=== PATIENT | male | born 1985 | race Caucasian/White ===

== ENCOUNTER → 2020-05-30 | Outpatient (CLI) | payer OTHER, MEDICAID ==
--- NOTE | 2020-06-11 04:10 | ECWPNPC ---
PATIENT NAME: ANTHONY ORANTES : 1985 GENDER: MALE VISIT DATE: 05/30/2020 DISCHARGE DATE: 05/30/20 1722 VISIT LOCKED DATE TIME: PHYSICIAN: JOE COLLINS MD RESOURCE: JOE COLLINS MD REASON FOR APPOINTMENT 1. NECK/BACK/SHOULDER-PT BOOKED WITH DR COLLINS DUE TO PRIMARY LANGUAGE BEING TONGAN. HISTORY OF PRESENT ILLNESS GENERAL: 34-YEAR-OLD MALE PATIENT WITH A HISTORY OF CHRONIC BACK PAIN. THE PATIENT HAS BEEN SUFFERING FROM THIS SINCE ABOUT 2 YEARS AGO. THE PATIENT EXPRESSED THAT THE PROBLEM HAS COME ON SLOWLY, AFFECTING DIFFERENT PARTS OF HIS BODY INCLUDING HIS UPPER BACK, LOWER BACK AND THE RIGHT SHOULDER. THE MAIN AREA OF HIS CONCERN AT THE MOMENT IS HIS LOWER BACK. THE PATIENT DESCRIBES THE PAIN STABBING, SHARP, SERVE WITH A PAIN SCORE RANGING FROM 8-10/10 DEPENDING ON PHYSICAL ACTIVITY. THIS IS AFFECTING HIS ACTIVITIES OF DAILY LIVING SUCH WORKING, DOING GROCERIES, CLEANING HIS HOUSE, DRIVING. HE IS HAVING PROBLEMS SLEEPING. THE PATIENT IS LOOKING FOR ALTERNATIVES. PRESENTLY, HE IS USING SEVERAL MEDICATIONS WHICH INCLUDE PERCOCET, IBUPROFEN, TIZANIDINE PRESCRIBED BY HIS PRIMARY CARE PHYSICIAN. THE PATIENT STATES THAT WHEN HE HAS PAIN, HE FEELS LIKE HIS BLOOD PRESSURE IS INCREASED. THE COLD WEATHER AFFECTS HIS JOINTS AND CAUSES PAIN. PATIENT DENIES UNEXPLAINABLE WEIGHT LOSS, FEVER, CHILLS, NEW CHANGES ON HIS URINARY OR BOWEL CONTROL. FALL RISK SCREENING: SCREENING :NO FALLS REPORTED IN THE LAST YEAR PAIN SCREENING: PATIENT HAS A COMPLAINT OF ACUTE OR CHRONIC PAIN :YES INTENSITY OF PAIN (SCALE OF 1 TO 10):10 WHAT DOES YOUR PAIN FEEL LIKE:STABBING, SHARP PAIN IN SHOULDER, "SCREW AND HAMMER" BACK FEELS LIKE SQUEZING OR PULLING MUSCLES DURATION:CONSTANT PAIN IS INCREASED BY:ACTIVITIES, PROLONGED STANDING PLAN/GOALS/TREATMENT/INTERVENTION/FOLLOW UP:SEE PLAN NURSING NOTE: -. CURRENT MEDICATIONS TAKING TIZANIDINE HCL 4 MG TABLET 1 TABLET NEEDED ORALLY THREE TIMES A DAY TAKING IBUPROFEN 800 MG TABLET 1 TABLET WITH FOOD OR MILK NEEDED ORALLY THREE TIMES A DAY TAKING PERCOCET 5-325 MG TABLET 1 TABLET NEEDED ORALLY EVERY 8 HRS MEDICATION LIST REVIEWED AND RECONCILED WITH THE PATIENT PAST MEDICAL HISTORY HYPERTENSION BACK PAIN, CHRONIC UMBILICAL HERNIA EPIDIDYMITIS CHEST WALL PAIN ALLERGIES N.K.D.A. SURGICAL HISTORY HAND SURGERY, RIGHT FAMILY HISTORY FATHER: ALIVE 59 YRS MOTHER: ALIVE 62 YRS, DIAGNOSED WITH DIABETES, UNSPECIFIED HEART DISEASE SOCIAL HISTORY GENERAL: TOBACCO USE ARE YOU A:CURRENT SMOKER VAPORNO E-CIGARETTENO ALCOHOL SCREENING DID YOU HAVE A DRINK CONTAINING ALCOHOL IN THE PAST YEAR?NO POINTS0 INTERPRETATIONNEGATIVE RECREATIONAL DRUG USE DRUG USE?NO CONFUCIANIST [id number] OTHER NO ADVENTIST BELIEFS THAT WOULD IMPACT HEALTH CARE. LANGUAGE LANGUAGES SPOKEN:BOTH GERMAN AND TONGAN LIMITED GERMAN LEARNING BARRIERS / SPECIAL NEEDS SHOWROOM MANAGER NEEDED?YES DOMESTIC VIOLENCE DO YOU FEEL SAFE IN YOUR ENVIRONMENT?YES OCCUPATION: UNEMPLOYED. DIET: NO ADDED SALT. MARITAL STATUS: . ADVANCE DIRECTIVE ADVANCE DIRECTIVE DISCUSSED WITH PATIENT:YES PATIENT DENIES, ANY ADVANCED DIRECTIVES, OR ASSISTANCE AT THIS TIME. HOSPITALIZATION/MAJOR DIAGNOSTIC PROCEDURE SURGERY RELATED REVIEW OF SYSTEMS CONSTITUTIONAL: ANY RECENT FEVER NO . CHILLS NO . WEIGHT CHANGE OF UNKNOWN REASONS NO . MUSCULOSKELETAL: ANY UNUSUAL JOINT PAIN OR SWELLING NOT MENTIONED NO . SYSTEMIC LUPUS NO . ANY NEUROMUSCULAR DISORDER NOT MENTIONED NO . LYME DISEASE NO . GASTROENTEROLOGY: ANY NEW CHANGE IN BOWEL CONTROL? NO . HISTORY OF LIVER DISORDER NOT MENTIONED NO . HISTORY OF UNUSUAL ABDOMINAL PAIN OR CRAMPING NOT MENTIONED NO . NO CONSTIPATION. GENITOURINARY: ANY NEW CHANGE IN BLADDER CONTROL? NO . ANY RENAL/KIDNEY CONDITON NOT MENTIONED NO . NEUROLOGY: HISTORY OF TBI NOT MENTIONED NO . OTHER NEW NUMBNESS OR PAIN PATTERNS NOT MENTIONED NO . NEW ONSET DIZZINESS OR NEUROLOGICAL CHANGES NOT MENTIONED NO . HISTORY OF SEVERE HEADACHES NOT MENTIONED NO . HISTORY OF STROKE OR NEUROLOGICAL DISORDER NOT MENTIONED NO . CARDIOLOGY: HEART SURGERY NO . CONGESTIVE HEART FAILURE/FLUID OVERLOAD NOT MENTIONED NO . HISTORY OF CHEST PAIN,IRREGULAR HEART BEAT NOT MENTIONED NO . RESPIRATORY: SHORTNESS OF BREATH ON EXERTION, WHEEZES, UNUSUAL COUGH NOT MENTIONED NO . ENDOCRINOLOGY: ADRENAL GLAND OR THYROID DISORDERS NOT MENTIONED NO . UNUSUAL URINATION, DIZZINESS OR LETHARGY NOT MENTIONED NO . VITAL SIGNS WT 260.8 LBS, HT 70 IN, BMI 37.42 INDEX, BP 155/89 MM HG, HR 96 /MIN, RR 18 /MIN, TEMP 97.1 F, OXYGEN SAT % 975, SAFE IN ENV? (Y/N) YES, NA INITIALS MA 14:03, REVIEWED BY: NAE VILLA RN BSN. EXAMINATION GENERAL EXAMINATION: THE PATIENT IS ALERT, ORIENTED TIMES THREE AND COOPERATIVE. HEART SHOWS REGULAR RHYTHM, NO MURMURS AND NO GALLOPS. LUNGS ARE CLEAR TO AUSCULTATION. THERE IS SEVERE TENDERNESS IN THE PARASPINAL MUSCLE GROUP IN THE LOWER BACK WITH PRESENCE OF TRIGGER POINTS AND BANDS OF TISSUE. THERE IS ALSO INCREASING PAIN IN THE FACET JOINTS ON THE RIGHT AND LEFT SIDE. THERE IS SEVERE PAIN IN THE THORACIC AREA ON THE RIGHT AND LEFT WITH BANDS OF TISSUE AND PRESENCE OF TRIGGER POINTS. THE RIGHT LEG IS WEAKER THAN THE LEFT LEG ON FLEXION. 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 I CHECKED SOME NOTES FROM THE REFERRING PHYSICIAN, DR. ABIGAIL FERNANDEZ. ASSESSMENTS LUMBAGO - M54.5 (PRIMARY) CERVICALGIA - M54.2 RIGHT SHOULDER PAIN - M25.511 MYALGIA - M79.10 TREATMENT LUMBAGO NOTES: 05/30/20 1600 PATIENT GIVEN PRE PROCEDURE INSTRUCTIONS ON TRIGGER POINT INJECTIONS, PATIENT VERBALIZES UNERSTANDING. Rishabh VILLA RN BSN. CLINICAL NOTES: I DISCUSSED ALTERNATIVES WITH MR. ORANTES. THE MAIN ISSUE SEEMS TO BE AT THE THORACOLUMBAR AREA. I WOULD LIKE TO DO TRIGGER POINTS AT BILATERAL THORACIC AREA. I WILL FOLLOW UP WITH THE PATIENT AFTER THE PROCEDURE. FOR NOW, THE PATIENT WILL CONTINUE WITH THE MEDICATION FROM THE PRIMARY CARE. THE PATIENT IS INTERESTED IN MEDICAL MARIJUANA. I WILL SEND A REFERRAL TO PALLIATIVE CARE. THE PATIENT UNDERSTANDS AND AGREES WITH THE PLAN. I, YAZMIN LAN, DOCUMENTED THE ABOVE INFORMATION ACTING A SCRIBE FOR DR. COLLINS. I HAVE REVIEWED THE ABOVE DOCUMENT, WRITTEN BY YAZMIN LAN, IMPLEMENT MECHANIC, AND I VERIFY THAT IT IS ACCURATE. DEAR DR. FERNANDEZ: THANK YOU FOR YOUR KIND REFERRAL OF ANTHONY ORANTES. IF YOU WANT TO DISCUSS HIS CASE WITH ME PLEASE CALL ME AT THE PAIN CENTER AT [phone]. SINCERELY, JOE COLLINS MD PAIN MEDICINE. OTHERS NOTES: 05/30/20 1420 NURSE USED HOSPITAL TRANSLATION SERVICES "[employer]" FOR ASSISTANCE WITH TONGAN TRANSLATION. Rishabh VILLA RN BSN . CLINICAL NOTES: IPAD AVAILABLE FROM NURSERING SUPERVISORS OFFICE PLEASE CALL NS BEFORE PRIOR TO OBTAINING IPAD. PROCEDURE CODES FA211 ESTABILISHED PATIENT [facility] FACILITY CHARGE 40074 OFFICE/OUTPATIENT VISIT NEW DISPOSITION & COMMUNICATION FOLLOW UP REQUEST AUTH FOR BILATERAL THORACIC TPI (REASON: REQUEST AUTH FOR BILATERAL THORACIC TPI) ELECTRONICALLY SIGNED BY JOE COLLINS MD, MD ON 06/10/2020 AT 02:51 PM EST DISCLAIMER : THIS IS A VISIT SUMMARY EXTRACTED FROM THE [employer] CHART. IT IS NOT A COPY OF THE [employer] PROGRESS NOTE. DALILA
== END ==
LOC: M PAIN 14:00
PROVIDERS: ATTEND Anesthesiology
DX: M54.5 Low back pain (principal); M54.2 Cervicalgia; M25.511 Pain in right shoulder; M79.10 Myalgia, unspecified site; I10 Essential (primary) hypertension; F17.210 Nicotine dependence, cigarettes, uncomplicated; Z79.899 Other long term (current) drug therapy

== ENCOUNTER → 2020-06-21 | Outpatient (CLI) | payer OTHER, MEDICAID | LOC: M LABSMTC 11:41 | PROVIDERS: ATTEND Anesthesiology | DX: Z20.828 Contact with and (suspected) exposure to other viral communicable diseases (principal) ==

== ENCOUNTER → 2020-06-24 | Outpatient (CLI) | payer OTHER, MEDICAID ==
[~2020-06-24] MED LIST: BUPIVACAINE HCL 0.25% 10ML VIAL As Ordered ONE; BUPIVACAINE HCL 0.25% 30ML VIAL As Ordered ONE; TRIAMCINOLONE ACETONIDE SUSP 40 MG/ML VIAL (J3301) As Ordered ONE; diazePAM 5MG TABLET As Ordered ONE; oxyCODONE 5MG TAB As Ordered ONE
--- NOTE | 2020-07-02 04:32 | ECWPNPC ---
PATIENT NAME: ANTHONY ORANTES : 1985 GENDER: MALE VISIT DATE: 06/24/2020 DISCHARGE DATE: 06/24/20 1723 VISIT LOCKED DATE TIME: PHYSICIAN: JOE COLLINS MD RESOURCE: JOE COLLINS MD REASON FOR APPOINTMENT 1. TRIGGER POINT INJECTIONS THORACIC BILATERAL HISTORY OF PRESENT ILLNESS GENERAL: -. FALL RISK SCREENING: SCREENING :NO FALLS REPORTED IN THE LAST YEAR PAIN SCREENING: PATIENT HAS A COMPLAINT OF ACUTE OR CHRONIC PAIN :YES LOCATION OF PAIN:BOTH SHOULDERS INTENSITY OF PAIN (SCALE OF 1 TO 10):9.5 NURSING NOTE: -. PAIN CENTER INTAKE QUESTIONS: DO YOU HAVE A HISTORY OF MRSA? :NO DO YOU TAKE A BLOOD THINNERS? :NO DO YOU HAVE ANY BLEEDING DISORDERS? :NO ANY NEW NUMBNESS OR WEAKNESS IN YOUR LEGS OR ARMS? :NO ANY PACEMAKER,DEFIBRILLATOR, OR DORSAL COLUMN STIMULATOR? :NO DO YOU HAVE ANY RASHES OR OPEN SORES? :NO ARE YOU ALLERGIC TO IV DYE? :NO ARE YOU DIABETIC? :NO ANY NEW PROBLEMS WITH YOUR MEDICATIONS? :NO HAVE YOU RECEIVED A VACCINE IN THE PAST 30 DAYS? :NO DO YOU PLAN TO RECEIVE A VACCINE IN THE NEXT 21 DAYS? :NO DO YOU TAKE ANY IMMUNOSUPPRESSIVE MEDICATIONS? :NO ANY HISTORY OF SEIZURES? :NO ANY HISTORY OF CARDIAC ISSUES OR EVENTS? :NO DO YOU HAVE SLEEP APNEA? :NO ANY RECENT HEAD INJURY? :NO DO YOU HAVE ANY NEW INFECTIONS? :NO IS THERE A CHANCE YOU COULD BE ? :NO ARE YOU BREAST FEEDING? :NO WHEN DID YOU LAST EAT? : -06/24 0600 WHEN DID YOU LAST DRINK? : 06/24 1400 WHAT DID YOU LAST DRINK? : -WATER NAME OF PERSON DRIVING YOU HOME? : GIRLFRIEND DO YOU HAVE ANY OTHER QUESTIONS OR CONCERNS? : - CURRENT MEDICATIONS TAKING TIZANIDINE HCL 4 MG TABLET 1 TABLET NEEDED ORALLY THREE TIMES A DAY, NOTES: 06/22 TAKING IBUPROFEN 800 MG TABLET 1 TABLET WITH FOOD OR MILK NEEDED ORALLY THREE TIMES A DAY, NOTES: NONE LATELY TAKING PERCOCET 5-325 MG TABLET 1 TABLET NEEDED ORALLY EVERY 8 HRS, NOTES: 06/24 09 MEDICATION LIST REVIEWED AND RECONCILED WITH THE PATIENT PAST MEDICAL HISTORY HYPERTENSION BACK PAIN, CHRONIC UMBILICAL HERNIA EPIDIDYMITIS CHEST WALL PAIN ALLERGIES N.K.D.A. SURGICAL HISTORY HAND SURGERY, RIGHT FAMILY HISTORY FATHER: ALIVE 59 YRS MOTHER: ALIVE 62 YRS, DIAGNOSED WITH UNSPECIFIED HEART DISEASE, DIABETES SOCIAL HISTORY GENERAL: TOBACCO USE ARE YOU A:CURRENT SMOKER VAPORNO E-CIGARETTENO LATEX QUESTIONNAIRE LATEX ALLERGY : HAVE YOU EVER DEVELOPED ANY TYPE OF REACTION AFTER HANDLING LATEX PRODUCTS SUCH RUBBER GLOVES, CONDOMS, DIAPHRAGMS, BALLOONS, SOCKS, OR UNDERWEAR?NO LATEX ALLERGY : HAVE YOU EVER DEVELOPED ANY TYPE OF REACTION DURING OR AFTER DENTAL APPOINTMENT, VAGINAL/RECTAL EXAMINATION, SURGICAL PROCEDURE, OR ANY OTHER EXPOSURE?NO LATEX RISK : HAVE YOU EVER HAD ANY DIFFICULTY BREATHING OR HIVES AFTER EATING OR HANDLING ANY FRUITS, OR VEGETABLES; SUCH KIWI, BANANAS, STONE FRUITS, OR CHESTNUTSNO LATEX RISK : DO YOU HAVE A PREVIOUS PERSONAL HISTORY OF MORE THAN NINE SURGERIES, SPINA BIFIDA, OR REPEATED CATHERIZATIONS? NO DATE ASKED : 06/24/2020 ALCOHOL SCREENING DID YOU HAVE A DRINK CONTAINING ALCOHOL IN THE PAST YEAR?NO POINTS0 INTERPRETATIONNEGATIVE RECREATIONAL DRUG USE DRUG USE?NO ADVENT [id number] OTHER NO ANABAPTIST BELIEFS THAT WOULD IMPACT HEALTH CARE. LANGUAGE LANGUAGES SPOKEN:BOTH BRITISH AND SENEGALESE LIMITED BRITISH LEARNING BARRIERS / SPECIAL NEEDS STOCK BUYER NEEDED?YES DOMESTIC VIOLENCE DO YOU FEEL SAFE IN YOUR ENVIRONMENT?YES OCCUPATION: UNEMPLOYED. DIET: NO ADDED SALT. MARITAL STATUS: . PAIN CLINIC PFS, CLERGY, PUBLIC HEALTH REFERRALS HAS THE PATIENT BEEN EDUCATED REGARDING HIS/HER PLAN OF CARE?YES HAS THE PATIENT BEEN EDUCATED REGARDING PAIN, THE RISK FOR PAIN, THE IMPORTANCE OF EFFECTIVE PAIN MANAGEMENT, AND THE PAIN ASSESSMENT PROCESS?YES ADVANCE DIRECTIVE ADVANCE DIRECTIVE DISCUSSED WITH PATIENT:YES PATIENT DENIES, ANY ADVANCED DIRECTIVES, OR ASSISTANCE AT THIS TIME. HOSPITALIZATION/MAJOR DIAGNOSTIC PROCEDURE SURGERY RELATED VITAL SIGNS WT 266 LBS, HT 70 IN, BMI 38.16 INDEX, BP 155/86 MM HG, HR 77 /MIN, RR 18 /MIN, TEMP 98.0 F, OXYGEN SAT % 97%, SAFE IN ENV? (Y/N) YES, NA INITIALS SC 15:24, REVIEWED BY: ALDAIR RN @ 0051. EXAMINATION GENERAL EXAMINATION: THE PATIENT IS ALERT, ORIENTED TIMES THREE AND COOPERATIVE. HEART SHOWS REGULAR RHYTHM, NO MURMURS AND NO GALLOPS. LUNGS ARE CLEAR TO AUSCULTATION. ASSESSMENTS MYALGIA - M79.10 (PRIMARY) TREATMENT MYALGIA MEDICATION: VALIUM TAB 10MG ORALLY (DIAZEPAM)ZAHIDA GATES 06/24/2020 4:21:08 PM > VALIUM LOT# [id number]. EXP DATE 02/11. VERIFIED ADRIAN VILLA 06/24/2020 4:22:44 PM > ADMINISTERED. MEDICATION: OXYCODONE HCL TAB 10MG ORALLYZAHIDA GATES 06/24/2020 4:22:31 PM > OXYCODONE LOT# [id number]. EXP 08/2021. VERIFIED. ADRIAN VILLA 06/24/2020 4:23:00 PM > ADMINISTERED NOTES: DISCHARGE INSTRUCTIONS REVIEWED WITH PATIENT WHO VERBALIZED UNDERSTANDING OF DISCHARGE INSTRUCTIONS. . PROCEDURES PAIN NURSING RECORD PROCEDURE IN ROOM 1600, PHYSICIAN IN ROOM 1650, START 1657, FINISH 1701, PHYSICIAN OUT OF ROOM 1703, OUT OF ROOM 1710, STEROID KENALOG, O2 RA, ECG N/A, PATIENT SHIELDED NO, SAFETY STRAP NO, PREP ALCOHOL BY DR COLLINS, IV INFUSED N/A, DRESSING TEGADERM BY Thanh GATES RN LOC: 1. ALERT, ORIENTED RESP: 1. REGULAR, NO DYSPNEA COLOR: 1. PINK SKIN: 1. WARM, DRY POSITION: 4. OTHER SITTING VITALS: ZAHIDA GATES 06/24/2020 5:15:55 PM > 165/93 HR 88 16 97% D/C V/S. DISCHARGE: POST PAIN 8, DRESSING SITE DRY AND INTACT, IV N/A, GAIT STEADY, TEACHING COMPLETED, PATIENT ACKNOWLEDGES UNDERSTANDING YES, PATIENT DISCHARGED AT 1710 PN TRIGGER POINT INJECTION WITH STEROIDS PRE PROCEDURE DIAGNOSIS 1. MYALGIA 2. PAIN AT BILATERAL THORACIC AREA POST PROCEDURE DIAGNOSIS 1. MYALGIA 2. PAIN AT BILATERAL THORACIC AREA PROCEDURE TRIGGER POINT INJECTION AT BILATERAL THORACIC AREA SURGEON DR. JOE COLLINS PENETRATION TESTER NONE ANESTHESIA LOCAL PRE PROCEDURE NOTE THE PATIENT HAS A HISTORY OF CHRONIC PAIN AT THE RIGHT AND LEFT THORACIC AREA. I EVALUATED THE PATIENT AND REVIEWED THE CHART. THERE IS EVIDENCE OF BANDS OF TISSUE WITH RESTRICTION OF MOVEMENT AND PRESENCE OF TRIGGER POINT AT THE RIGHT AND LEFT THORACIC AREA. I WENT OVER THE RISKS, ALTERNATIVES, AND BENEFITS ASSOCIATED WITH THIS PROCEDURE. I DISCUSSED THAT THE USE OF STEROIDS MAY CONTRIBUTE TO IMMUNOSUPPRESSION OF THE PATIENT'S BODY AGAINST INFECTIONS SUCH COVID-19. THE PATIENT IS AWARE OF THE POTENTIAL COMPLICATIONS ASSOCIATED WITH THIS VIRUS, INCLUDING, BUT NOT LIMITED TO, . THE PATIENT WOULD LIKE TO PROCEED AND GIVE CONSENT TO PERFORMED THE PROCEDURE. THE PATIENT DENIES UNEXPLAINABLE WEIGHT LOSS, FEVER, CHILLS, OR NEW CHANGES IN URINARY OR BOWEL CONTROL. THE PATIENT IS COVID-19 NEGATIVE DESCRIPTION OF PROCEDURE THE PATIENT WAS BROUGHT TO THE PROCEDURE ROOM AND PLACED IN THE SITTING POSITION. THE AREA WAS CLEANED WITH ALCOHOL. THE PROCEDURE WAS DONE USING ASEPTIC STERILE TECHNIQUE. A TIMEOUT WAS PERFORMED WHERE LATERALITY AND THE SITE OF THE PROCEDURE WERE CHECKED AND CONFIRMED WITH EVERYONE IN THE ROOM. USING A 25-GAUGE NEEDLE, TRIGGER POINTS WERE INJECTED AT THE RIGHT AND LEFT THORACIC AREA WITH A TOTAL OF 40 ML OF BUPIVACAINE 0.25% AND KENALOG 40 MG. THE MEDICATIONS WERE VERIFIED WITH THE NURSE. THERE WAS NO EVIDENCE OF BLOOD OR PARESTHESIA DURING THE PROCEDURE. THE PATIENT WAS SENT TO THE RECOVERY ROOM. THE PATIENT WAS MOVING THE EXTREMITIES AND DOING WELL. THERE WERE NO COMPLICATIONS DURING THE PROCEDURE. ESTIMATED BLOOD LOSS WAS LESS THAN 5 ML POST PROCEDURE NOTE THE PATIENT ALSO STATES THAT HE HAS RIGHT SHOULDER PAIN AND RIGHT LUMBAR PAIN. WE CAN CONSIDER WORKING OVER THOSE AREAS IN THE FUTURE. THE PROCEDURE DONE WAS DISCUSSED WITH THE PATIENT. THE PATIENT WILL BE SEEN IN A FOLLOW UP IN THE NEXT FEW WEEKS. I AM LOOKING FOR LONG LASTING PAIN RELIEF FOR THE PATIENT WITH THIS INTERVENTION. INSTRUCTIONS WERE GIVEN, QUESTIONS WERE ANSWERED, AND THE PATIENT EXPRESSED UNDERSTANDING AND AGREES WITH THE PLAN. I, YAZMIN LAN, DOCUMENTED THE ABOVE INFORMATION ACTING A SCRIBE FOR DR. COLLINS. I HAVE REVIEWED THE ABOVE DOCUMENT, WRITTEN BY YAZMIN LAN, TOP LIFT TRIMMER, AND I VERIFY THAT IT IS ACCURATE PROCEDURE CODES 77879 INJ TRIGGER POINT 07/26 [facility] [place] COMMUNICATION FOLLOW UP FOLLOW UP WITH DR. COLLINS TOMORROW (REASON: POST TRIGGER POINT INJECTIONS THORACIC BILATERAL) ELECTRONICALLY SIGNED BY JOE COLLINS MD, MD ON 07/01/2020 AT 12:13 PM EST DISCLAIMER : THIS IS A VISIT SUMMARY EXTRACTED FROM THE [employer] CHART. IT IS NOT A COPY OF THE [employer] PROGRESS NOTE. DALILA
== END ==
LOC: M PAIN 14:30
PROVIDERS: ATTEND Anesthesiology
DX: M79.18 Myalgia, other site (principal); I10 Essential (primary) hypertension; F17.210 Nicotine dependence, cigarettes, uncomplicated; Z79.891 Long term (current) use of opiate analgesic; Z79.899 Other long term (current) drug therapy
CPT/HCPCS: 20552; J3301

== ENCOUNTER → 2020-06-25 | Outpatient (CLI) | payer OTHER, MEDICAID ==
--- NOTE | 2020-07-03 03:33 | ECWPNPC ---
PATIENT NAME: ANTHONY ORANTES : 1985 GENDER: MALE VISIT DATE: 06/25/2020 DISCHARGE DATE: 06/25/20 1735 VISIT LOCKED DATE TIME: PHYSICIAN: JOE COLLINS MD RESOURCE: JOE COLLINS MD REASON FOR APPOINTMENT 1. POST TPI THORACIC HISTORY OF PRESENT ILLNESS GENERAL: 34-YEAR-OLD MALE PATIENT WITH A HISTORY OF CHRONIC SHOULDER AND BACK PAIN. THE PATIENT DESCRIBES THE PAIN ACHING AND ON OCCASION SEVERE. THE PAIN IS LOCATED IN HIS SHOULDERS AND LOWER BACK. THIS PAIN IS AFFECTING HIS ACTIVITIES SUCH MOVING AROUND AND CLEANING HIS HOUSE. HE HAS BEEN TAKING MEDICATIONS TO HELP WITH THE PAIN. THE PATIENT HAD A TRIGGER POINT INJECTION YESTERDAY. PATIENT DENIES UNEXPLAINABLE WEIGHT LOSS, FEVER, CHILLS, NEW CHANGES ON URINARY OR BOWEL CONTROL. -. FALL RISK SCREENING: SCREENING :NO FALLS REPORTED IN THE LAST YEAR PAIN SCREENING: PATIENT HAS A COMPLAINT OF ACUTE OR CHRONIC PAIN :YES LOCATION OF PAIN:UPPER BACK, MID BACK, LOW BACK INTENSITY OF PAIN (SCALE OF 1 TO 10):6 WHAT DOES YOUR PAIN FEEL LIKE:ACHING, CONTINOUS DURATION:CONTINOUS, CONSTANT PAIN IS INCREASED BY:ACTIVITIES PAIN IS DECREASED BY:USE OF PAIN MEDICATIONS NURSING NOTE: -. PAIN CENTER INTAKE QUESTIONS: DO YOU HAVE A HISTORY OF MRSA? :NO DO YOU TAKE A BLOOD THINNERS? :NO DO YOU HAVE ANY BLEEDING DISORDERS? :NO ANY NEW NUMBNESS OR WEAKNESS IN YOUR LEGS OR ARMS? :NO ANY PACEMAKER,DEFIBRILLATOR, OR DORSAL COLUMN STIMULATOR? :NO DO YOU HAVE ANY RASHES OR OPEN SORES? :NO ARE YOU ALLERGIC TO IV DYE? :NO ARE YOU DIABETIC? :NO ANY NEW PROBLEMS WITH YOUR MEDICATIONS? :NO HAVE YOU RECEIVED A VACCINE IN THE PAST 30 DAYS? :NO DO YOU PLAN TO RECEIVE A VACCINE IN THE NEXT 21 DAYS? :NO DO YOU NEED ANY PRESCRIPTION? :NO DO YOU TAKE ANY IMMUNOSUPPRESSIVE MEDICATIONS? :NO IS THERE A CHANCE YOU COULD BE ? :NO ARE YOU BREAST FEEDING? :NO CURRENT MEDICATIONS TAKING TIZANIDINE HCL 4 MG TABLET 1 TABLET NEEDED ORALLY THREE TIMES A DAY TAKING IBUPROFEN 800 MG TABLET 1 TABLET WITH FOOD OR MILK NEEDED ORALLY THREE TIMES A DAY TAKING PERCOCET 5-325 MG TABLET 1 TABLET NEEDED ORALLY EVERY 8 HRS MEDICATION LIST REVIEWED AND RECONCILED WITH THE PATIENT PAST MEDICAL HISTORY HYPERTENSION BACK PAIN, CHRONIC UMBILICAL HERNIA EPIDIDYMITIS CHEST WALL PAIN ALLERGIES N.K.D.A. SURGICAL HISTORY HAND SURGERY, RIGHT FAMILY HISTORY FATHER: ALIVE 59 YRS MOTHER: ALIVE 62 YRS, DIAGNOSED WITH UNSPECIFIED HEART DISEASE, DIABETES SOCIAL HISTORY GENERAL: TOBACCO USE ARE YOU A:CURRENT SMOKER VAPORNO E-CIGARETTENO LATEX QUESTIONNAIRE LATEX ALLERGY : HAVE YOU EVER DEVELOPED ANY TYPE OF REACTION AFTER HANDLING LATEX PRODUCTS SUCH RUBBER GLOVES, CONDOMS, DIAPHRAGMS, BALLOONS, SOCKS, OR UNDERWEAR?NO LATEX ALLERGY : HAVE YOU EVER DEVELOPED ANY TYPE OF REACTION DURING OR AFTER DENTAL APPOINTMENT, VAGINAL/RECTAL EXAMINATION, SURGICAL PROCEDURE, OR ANY OTHER EXPOSURE?NO DATE ASKED : 06/24/2020 LATEX RISK : HAVE YOU EVER HAD ANY DIFFICULTY BREATHING OR HIVES AFTER EATING OR HANDLING ANY FRUITS, OR VEGETABLES; SUCH KIWI, BANANAS, STONE FRUITS, OR CHESTNUTSNO LATEX RISK : DO YOU HAVE A PREVIOUS PERSONAL HISTORY OF MORE THAN NINE SURGERIES, SPINA BIFIDA, OR REPEATED CATHERIZATIONS? NO ALCOHOL SCREENING DID YOU HAVE A DRINK CONTAINING ALCOHOL IN THE PAST YEAR?NO POINTS0 INTERPRETATIONNEGATIVE RECREATIONAL DRUG USE DRUG USE?NO UATSDIN [id number] OTHER NO SABIANISM BELIEFS THAT WOULD IMPACT HEALTH CARE. LANGUAGE LANGUAGES SPOKEN:BOTH FRISIAN AND GREENLANDIC LIMITED FRISIAN LEARNING BARRIERS / SPECIAL NEEDS RISK MGR NEEDED?YES DOMESTIC VIOLENCE DO YOU FEEL SAFE IN YOUR ENVIRONMENT?YES OCCUPATION: UNEMPLOYED. DIET: NO ADDED SALT. MARITAL STATUS: . PAIN CLINIC PFS, CLERGY, PUBLIC HEALTH REFERRALS HAS THE PATIENT BEEN EDUCATED REGARDING HIS/HER PLAN OF CARE?YES HAS THE PATIENT BEEN EDUCATED REGARDING PAIN, THE RISK FOR PAIN, THE IMPORTANCE OF EFFECTIVE PAIN MANAGEMENT, AND THE PAIN ASSESSMENT PROCESS?YES ADVANCE DIRECTIVE ADVANCE DIRECTIVE DISCUSSED WITH PATIENT:YES PATIENT DENIES, ANY ADVANCED DIRECTIVES, OR ASSISTANCE AT THIS TIME. HOSPITALIZATION/MAJOR DIAGNOSTIC PROCEDURE SURGERY RELATED REVIEW OF SYSTEMS CONSTITUTIONAL: ANY RECENT FEVER NO . CHILLS NO . WEIGHT CHANGE OF UNKNOWN REASONS NO . GASTROENTEROLOGY: NEW UNEXPLAINABLE CHANGES IN BOWEL CONTROL NO . CONSTIPATION NO . GENITOURINARY: ANY NEW CHANGE IN BLADDER CONTROL? NO . NEUROLOGY: NEW ONSET DIZZINESS OR NEUROLOGICAL CHANGES NOT MENTIONED NO . NEW NUMBNESS OR PAIN PATTERNS NOT MENTIONED AND PERTINENT TO TODAY'S VISIT NO . CARDIOLOGY: NEW CHEST PRESSURE NO . NEW CHEST PAIN NO . RESPIRATORY: UNEXPLAINABLE COUGH NO . NEW SHORTNESS OF BREATH NO . VITAL SIGNS WT 266 LBS, HT 70 IN, BMI 38.16 INDEX, BP 144/87 MM HG, HR 77 /MIN, RR 18 /MIN, TEMP 95.4 F, OXYGEN SAT % 96%, NA INITIALS SC 15:25. EXAMINATION GENERAL EXAMINATION: THE PATIENT IS ALERT, ORIENTED TIMES THREE AND COOPERATIVE. HEART SHOWS REGULAR RHYTHM, NO MURMURS AND NO GALLOPS. LUNGS ARE CLEAR TO AUSCULTATION. THERE IS TENDERNESS IN THE RIGHT AND LEFT SHOULDER AND RIGHT AND LEFT LOWER BACK WITH PRESENCE OF TRIGGER POINTS AND BANDS OF TISSUE WITH RESTRICTION OF MOVEMENT. ASSESSMENTS CHRONIC PAIN - G89.29 (PRIMARY) SHOULDER PAIN - M25.519 LOW BACK PAIN - M54.5 MYALGIA, OTHER SITE - M79.18 TREATMENT CHRONIC PAIN PAIN PROCEDURE LOGDATE OF FJPLHLCSF06/01/2020PROCEDURE:TRIGGER POINT INJECTION BILATERAL THORACICAMOUNT OF PRE SEDATEVALIUM 10 MG OXYCODONE 10 MGRESULT:GOOD RESULT SO FAR, TOO EARLY TO TELL. THIS PROCEDURE WAS REVIEWED BY MACK GRADY ON 07/02/2020 AT 13:36 PM EST NOTES: PREPROCEDURE INSTRUCTIONS FOR TRIGGER POINT INJECTIONS REVIEWED WITH PATIENT. PATIENT VERBALIZES UNDERSTANDING OF PREPROCEDURE INSTRUCTIONS WITH SPEAKING SLOWLY AND CLEARLY DUE TO BILINGUAL STATUS OF PATIENT. SHOULDER PAIN CLINICAL NOTES: I DISCUSSED ALTERNATIVES WITH MR. ORANTES. I AM GOING TO REQUEST AUTHORIZATION FOR BILATERAL LOWER BACK AND BILATERAL SHOULDER TRIGGER POINT INJECTIONS, BOOK AFTER APPROVE. THE PATIENT HAD A TRIGGER POINT INJECTION OVER HIS THORACIC AREA YESTERDAY. IT IS STILL TOO EARLY TO KNOW HOW THAT INJECTION IS DOING. I DISCUSSED WITH HIS PRIMARY CARE PHYSICIAN ABOUT HIS MEDICATION MANAGEMENT. THE PRIMARY AGREES WITH US TAKING OVER LONG IT IS NO MORE THAN 2 TABLETS A DAY WITH NO MORE THAN 50 MG OF MORPHINE. WE WILL DO THIS FOR 8 MONTHS AND THEN HIS PRIMARY WILL TAKE BACK OVER THE MEDICATION MANAGEMENT. I AM STILL REFERRING THE PATIENT FOR MEDICAL MARIJUANA. THE PATIENT WILL FOLLOW UP WITH THE NURSE PRACTITIONER FOR MEDICATION MANAGEMENT. THE PATIENT REPORTS UNDERSTANDING AND AGREES WITH THE PLAN. I, YAZMIN LAN, DOCUMENTED THE ABOVE INFORMATION ACTING A SCRIBE FOR DR. COLLINS. I HAVE REVIEWED THE ABOVE DOCUMENT, WRITTEN BY YAZMIN LAN, TITLE INSURANCE EXAMINER, AND I VERIFY THAT IT IS ACCURATE. PROCEDURE CODES [id number] OFFICE/OUTPATIENT VISIT EST FA211 ESTABILISHED PATIENT [facility] CHARGE DISPOSITION & COMMUNICATION FOLLOW UP REQUEST AUTH FOR TRIGGER POINT INJECTION BILATERAL LOWER BACK AND BILATERAL SHOULDERS. NEXT WEEK FOLLOW UP WITH GALLERY HOST FOR MED MANAGEMENT (REASON: BOOK TRIGGER POINT FOR NEXT WEEK IF POSSIBLE) ELECTRONICALLY SIGNED BY JOE COLLINS MD, MD ON 07/02/2020 AT 10:17 AM EST DISCLAIMER : THIS IS A VISIT SUMMARY EXTRACTED FROM THE [employer] CHART. IT IS NOT A COPY OF THE [employer] PROGRESS NOTE. DALILA
== END ==
LOC: M PAIN 15:15
PROVIDERS: ATTEND Anesthesiology
DX: M25.519 Pain in unspecified shoulder (principal); M54.5 Low back pain; M79.18 Myalgia, other site; F17.200 Nicotine dependence, unspecified, uncomplicated; Z79.899 Other long term (current) drug therapy

== ENCOUNTER → 2020-07-04 | Outpatient (CLI) | payer OTHER, MEDICAID ==
--- NOTE | 2020-07-08 00:35 | ECWPNPC ---
PATIENT NAME: ANTHONY ORANTES : 1985 GENDER: MALE VISIT DATE: 07/04/2020 DISCHARGE DATE: 07/04/20 1216 VISIT LOCKED DATE TIME: PHYSICIAN: ORQUIDEA DE LA TORRE RESOURCE: ORQUIDEA DE LA TORRE REASON FOR APPOINTMENT 1. BACK AND SHOULDER PAIN-MED MANAGEMENT PER DR. Law HISTORY OF PRESENT ILLNESS DEPRESSION SCREENING: PHQ-2 (2015 EDITION) LITTLE INTEREST OR PLEASURE IN DOING THINGS?NOT AT ALL FEELING DOWN, DEPRESSED, OR HOPELESS?NOT AT ALL TOTAL SCORE0 34-YEAR-OLD MALE IN FOR CHRONIC PAIN FOLLOW-UP HE RATES HIS PAIN CURRENTLY AT AN 8-1/2 OUT OF 10 AND DESCRIBES IT ACHING, CONTINUOUS, SHARP, AND STABBING. PATIENT HAD A RECENT TRIGGER POINT INJECTIONS THAT WERE INEFFECTIVE. HE PRESENTS TODAY FOR MEDICATION MANAGEMENT. GENERAL: -. FALL RISK SCREENING: SCREENING :NO FALLS REPORTED IN THE LAST YEAR PAIN SCREENING: PATIENT HAS A COMPLAINT OF ACUTE OR CHRONIC PAIN :YES LOCATION OF PAIN:BOTH SHOULDERS, UPPER BACK, MID BACK, LOW BACK INTENSITY OF PAIN (SCALE OF 1 TO 10):8.5 WHAT DOES YOUR PAIN FEEL LIKE:ACHING, CONTINOUS, SHARP, STABBING DURATION:CONTINOUS, ALL DAY PAIN IS INCREASED BY:ACTIVITIES, PROLONGED STANDING PAIN IS DECREASED BY:OTHERS LAYING FLAT ON HARD SURFACE NURSING NOTE: -. PAIN CENTER INTAKE QUESTIONS: DO YOU HAVE A HISTORY OF MRSA? :NO DO YOU TAKE A BLOOD THINNERS? :NO DO YOU HAVE ANY BLEEDING DISORDERS? :NO ANY NEW NUMBNESS OR WEAKNESS IN YOUR LEGS OR ARMS? :NO ANY PACEMAKER,DEFIBRILLATOR, OR DORSAL COLUMN STIMULATOR? :NO DO YOU HAVE ANY RASHES OR OPEN SORES? :NO ARE YOU ALLERGIC TO IV DYE? :NO ARE YOU DIABETIC? :NO ANY NEW PROBLEMS WITH YOUR MEDICATIONS? :NO HAVE YOU RECEIVED A VACCINE IN THE PAST 30 DAYS? :NO DO YOU PLAN TO RECEIVE A VACCINE IN THE NEXT 21 DAYS? :NO DO YOU NEED ANY PRESCRIPTION? :NO DO YOU TAKE ANY IMMUNOSUPPRESSIVE MEDICATIONS? :NO IS THERE A CHANCE YOU COULD BE ? :NO ARE YOU BREAST FEEDING? :NO CURRENT MEDICATIONS TAKING TIZANIDINE HCL 4 MG TABLET 1 TABLET NEEDED ORALLY THREE TIMES A DAY TAKING IBUPROFEN 800 MG TABLET 1 TABLET WITH FOOD OR MILK NEEDED ORALLY THREE TIMES A DAY TAKING PERCOCET 5-325 MG TABLET 1 TABLET NEEDED ORALLY EVERY 8 HRS MEDICATION LIST REVIEWED AND RECONCILED WITH THE PATIENT PAST MEDICAL HISTORY HYPERTENSION BACK PAIN, CHRONIC UMBILICAL HERNIA EPIDIDYMITIS CHEST WALL PAIN ALLERGIES N.K.D.A. SURGICAL HISTORY HAND SURGERY, RIGHT FAMILY HISTORY FATHER: ALIVE 59 YRS MOTHER: ALIVE 62 YRS, DIAGNOSED WITH UNSPECIFIED HEART DISEASE, DIABETES SOCIAL HISTORY GENERAL: TOBACCO USE ARE YOU A:CURRENT SMOKER VAPORNO E-CIGARETTENO LATEX QUESTIONNAIRE LATEX ALLERGY : HAVE YOU EVER DEVELOPED ANY TYPE OF REACTION AFTER HANDLING LATEX PRODUCTS SUCH RUBBER GLOVES, CONDOMS, DIAPHRAGMS, BALLOONS, SOCKS, OR UNDERWEAR?NO LATEX ALLERGY : HAVE YOU EVER DEVELOPED ANY TYPE OF REACTION DURING OR AFTER DENTAL APPOINTMENT, VAGINAL/RECTAL EXAMINATION, SURGICAL PROCEDURE, OR ANY OTHER EXPOSURE?NO LATEX RISK : HAVE YOU EVER HAD ANY DIFFICULTY BREATHING OR HIVES AFTER EATING OR HANDLING ANY FRUITS, OR VEGETABLES; SUCH KIWI, BANANAS, STONE FRUITS, OR CHESTNUTSNO LATEX RISK : DO YOU HAVE A PREVIOUS PERSONAL HISTORY OF MORE THAN NINE SURGERIES, SPINA BIFIDA, OR REPEATED CATHERIZATIONS? NO DATE ASKED : 07/04/2020 ALCOHOL SCREENING DID YOU HAVE A DRINK CONTAINING ALCOHOL IN THE PAST YEAR?NO POINTS0 INTERPRETATIONNEGATIVE RECREATIONAL DRUG USE DRUG USE?NO SCIENTOLOGY [id number] OTHER NO CHRISTIANITY BELIEFS THAT WOULD IMPACT HEALTH CARE. 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 DIET: NO ADDED SALT. MARITAL STATUS: . PAIN CLINIC PFS, CLERGY, PUBLIC HEALTH REFERRALS HAS THE PATIENT BEEN EDUCATED REGARDING HIS/HER PLAN OF CARE?YES HAS THE PATIENT BEEN EDUCATED REGARDING PAIN, THE RISK FOR PAIN, THE IMPORTANCE OF EFFECTIVE PAIN MANAGEMENT, AND THE PAIN ASSESSMENT PROCESS?YES ADVANCE DIRECTIVE ADVANCE DIRECTIVE DISCUSSED WITH PATIENT:YES PATIENT DENIES, ANY ADVANCED DIRECTIVES, OR ASSISTANCE AT THIS TIME. HOSPITALIZATION/MAJOR DIAGNOSTIC PROCEDURE SURGERY RELATED REVIEW OF SYSTEMS CONSTITUTIONAL: ANY RECENT FEVER NO . CHILLS NO . WEIGHT CHANGE OF UNKNOWN REASONS NO . GASTROENTEROLOGY: NEW UNEXPLAINABLE CHANGES IN BOWEL CONTROL NO . CONSTIPATION NO . GENITOURINARY: ANY NEW CHANGE IN BLADDER CONTROL? NO . NEUROLOGY: NEW ONSET DIZZINESS OR NEUROLOGICAL CHANGES NOT MENTIONED NO . NEW NUMBNESS OR PAIN PATTERNS NOT MENTIONED AND PERTINENT TO TODAY'S VISIT NO . CARDIOLOGY: NEW CHEST PRESSURE NO . NEW CHEST PAIN NO . RESPIRATORY: UNEXPLAINABLE COUGH NO . NEW SHORTNESS OF BREATH NO . VITAL SIGNS WT 259.8 LBS, HT 70 IN, BMI 37.27 INDEX, BP 153/97 MM HG, HR 83 /MIN, RR 18 /MIN, TEMP 98.2 F, OXYGEN SAT % 98%, NA INITIALS SC 11:04. EXAMINATION GENERAL EXAMINATION: GENERALNO ACUTE DISTRESS, WELL NOURISHED AND HYDRATED. PSYCHAPPROPRIATE MOOD AND AFFECT . LUNGS:CLEAR TO AUSCULTATION BILATERALLY, NO WHEEZES, RHONCHI, RALES. HEART:NO MURMURS, REGULAR RATE AND RHYTHM. ASSESSMENTS MYALGIA - M79.10 (PRIMARY) TREATMENT MYALGIA REFILL PERCOCET TABLET, 5-325 MG, 1 TABLET NEEDED, ORALLY, TWICE DAILY NEEDED FOR PAIN, 30 DAYS, 60 START LYRICA CAPSULE, 75 MG, 1 CAPSULE, ORALLY, TWICE DIALY, 30 DAYS, 60 LAB: PAIN CENTER URINE TOX (SEND OUT) NOTES: 34-YEAR-OLD MALE IN FOR CHRONIC PAIN FOLLOW-UP. GIVEN PRESENTING SYMPTOMS AND CONSULT WITH DR. COLLINS RECOMMEND PERCOCET 5/325 MG TWICE A DAY NEEDED FOR PAIN AND LYRICA 75 MG TWICE A DAY. WITH FOLLOW-UP IN 3 WEEKS. PATIENT HAS EXPRESSED UNDERSTANDING OF AND WAS IN AGREEMENT WITH TREATMENT PLAN. GIVEN TIME TO ASK QUESTIONS AND EXPRESS CONCERNS. , ISTOP REGISTRY REVIEWED AND DEMONSTRATES COMPLLIANCE. (REF # [id number] ) URINE COLLECTED FOR UTOX SCREENING Radha GILLIL[place]. PROCEDURE CODES FA211 ESTABILISHED PATIENT [facility] CHARGE DISPOSITION & COMMUNICATION FOLLOW UP 3 WEEKS (REASON: MYALGIA ) ELECTRONICALLY SIGNED BY WILD LARIOS ON 07/07/2020 AT 09:05 AM EST DISCLAIMER : THIS IS A VISIT SUMMARY EXTRACTED FROM THE [facility] CHART. IT IS NOT A COPY OF THE [facility] PROGRESS NOTE. MTDD
== END ==
LOC: M PAIN 10:45
PROVIDERS: ATTEND Family Medicine
DX: M79.10 Myalgia, unspecified site (principal); F17.200 Nicotine dependence, unspecified, uncomplicated; Z79.899 Other long term (current) drug therapy

== ENCOUNTER → 2020-07-28 | Outpatient (CLI) | payer OTHER, MEDICAID ==
--- NOTE | 2020-07-30 01:58 | ECWPNPC ---
PATIENT NAME: ANTHONY ORANTES : 1985 GENDER: MALE VISIT DATE: 07/28/2020 DISCHARGE DATE: 07/28/20 1218 VISIT LOCKED DATE TIME: PHYSICIAN: ORQUIDEA DE LA TORRE RESOURCE: ORQUIDEA DE LA TORRE REASON FOR APPOINTMENT 1. 3 WEEK - MED MANAGEMENT HISTORY OF PRESENT ILLNESS GENERAL: 34-YEAR-OLD MALE IN FOR CHRONIC PAIN FOLLOW-UP. HE RATES HIS PAIN CURRENTLY AT A 8 OUT OF 10 AND DESCRIBES IT STABBING. AT LAST CLINIC VISIT PATIENT WAS STARTED ON A COMBINATION OF LYRICA AND PERCOCET AND HE ADMITS TODAY THAT THIS HAS BEEN BENEFICIAL. -. FALL RISK SCREENING: SCREENING :NO FALLS REPORTED IN THE LAST YEAR PAIN SCREENING: PATIENT HAS A COMPLAINT OF ACUTE OR CHRONIC PAIN :YES LOCATION OF PAIN:NECK, RIGHT SHOULDER, MID BACK INTENSITY OF PAIN (SCALE OF 1 TO 10):8 WHAT DOES YOUR PAIN FEEL LIKE:STABBING DURATION:CONTINOUS, CONSTANT PAIN IS INCREASED BY:ACTIVITIES PAIN IS DECREASED BY:USE OF PAIN MEDICATIONS TREATMENT/MEDICATIONS USED TO MANAGE PAIN:OPIOIDS LEVEL OF RELIEF FROM PAIN TREATMENTS IN THE PAST:50% PAIN HAS INTERFERED WITH THE FOLLOWING:BATHING/DRESSING, WALKING ABILITY, HOUSEWORK, SLEEP, TRANSPORTATION, TOILETING NURSING NOTE: -. PAIN CENTER INTAKE QUESTIONS: DO YOU HAVE A HISTORY OF MRSA? :NO DO YOU TAKE A BLOOD THINNERS? :NO DO YOU HAVE ANY BLEEDING DISORDERS? :NO ANY NEW NUMBNESS OR WEAKNESS IN YOUR LEGS OR ARMS? :YES RIGHT HAND CRAMPING ANY PACEMAKER,DEFIBRILLATOR, OR DORSAL COLUMN STIMULATOR? :NO DO YOU HAVE ANY RASHES OR OPEN SORES? :NO ARE YOU ALLERGIC TO IV DYE? :NO ARE YOU DIABETIC? :NO ANY NEW PROBLEMS WITH YOUR MEDICATIONS? :NO HAVE YOU RECEIVED A VACCINE IN THE PAST 30 DAYS? :NO DO YOU PLAN TO RECEIVE A VACCINE IN THE NEXT 21 DAYS? :NO DO YOU NEED ANY PRESCRIPTION? :YES OXY DO YOU TAKE ANY IMMUNOSUPPRESSIVE MEDICATIONS? :NO IS THERE A CHANCE YOU COULD BE ? :NO ARE YOU BREAST FEEDING? :NO CURRENT MEDICATIONS TAKING PERCOCET 5-325 MG TABLET 1 TABLET NEEDED ORALLY TWICE DAILY NEEDED FOR PAIN TAKING LYRICA 75 MG CAPSULE 1 CAPSULE ORALLY TWICE DIALY NOT-TAKING TIZANIDINE HCL 4 MG TABLET 1 TABLET NEEDED ORALLY THREE TIMES A DAY NOT-TAKING IBUPROFEN 800 MG TABLET 1 TABLET WITH FOOD OR MILK NEEDED ORALLY THREE TIMES A DAY MEDICATION LIST REVIEWED AND RECONCILED WITH THE PATIENT PAST MEDICAL HISTORY HYPERTENSION BACK PAIN, CHRONIC UMBILICAL HERNIA EPIDIDYMITIS CHEST WALL PAIN ALLERGIES N.K.D.A. SURGICAL HISTORY HAND SURGERY, RIGHT FAMILY HISTORY FATHER: ALIVE 59 YRS MOTHER: ALIVE 62 YRS, DIAGNOSED WITH UNSPECIFIED HEART DISEASE, DIABETES SOCIAL HISTORY GENERAL: TOBACCO USE ARE YOU A:CURRENT SMOKER ARE YOU INTERESTED IN QUITTING?THINKING ABOUT QUITTING COUNSELED THE PATIENT ON SMOKING CESSATION, EDUCATION [id number]/04/2021 VAPORNO E-CIGARETTENO LATEX QUESTIONNAIRE LATEX ALLERGY : HAVE YOU EVER DEVELOPED ANY TYPE OF REACTION AFTER HANDLING LATEX PRODUCTS SUCH RUBBER GLOVES, CONDOMS, DIAPHRAGMS, BALLOONS, SOCKS, OR UNDERWEAR?NO LATEX ALLERGY : HAVE YOU EVER DEVELOPED ANY TYPE OF REACTION DURING OR AFTER DENTAL APPOINTMENT, VAGINAL/RECTAL EXAMINATION, SURGICAL PROCEDURE, OR ANY OTHER EXPOSURE?NO LATEX RISK : HAVE YOU EVER HAD ANY DIFFICULTY BREATHING OR HIVES AFTER EATING OR HANDLING ANY FRUITS, OR VEGETABLES; SUCH KIWI, BANANAS, STONE FRUITS, OR CHESTNUTSNO LATEX RISK : DO YOU HAVE A PREVIOUS PERSONAL HISTORY OF MORE THAN NINE SURGERIES, SPINA BIFIDA, OR REPEATED CATHERIZATIONS? NO DATE ASKED : 07/28/2020 ALCOHOL SCREENING DID YOU HAVE A DRINK CONTAINING ALCOHOL IN THE PAST YEAR?NO POINTS0 INTERPRETATIONNEGATIVE RECREATIONAL DRUG USE DRUG USE?NO SYNAGOGUE [id number] OTHER NO RELIGION BELIEFS THAT WOULD IMPACT HEALTH CARE. 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 DIET: NO ADDED SALT. MARITAL STATUS: . PAIN CLINIC PFS, CLERGY, PUBLIC HEALTH REFERRALS HAS THE PATIENT BEEN EDUCATED REGARDING HIS/HER PLAN OF CARE?YES HAS THE PATIENT BEEN EDUCATED REGARDING PAIN, THE RISK FOR PAIN, THE IMPORTANCE OF EFFECTIVE PAIN MANAGEMENT, AND THE PAIN ASSESSMENT PROCESS?YES ADVANCE DIRECTIVE ADVANCE DIRECTIVE DISCUSSED WITH PATIENT:YES PATIENT DENIES, ANY ADVANCED DIRECTIVES, OR ASSISTANCE AT THIS TIME. HOSPITALIZATION/MAJOR DIAGNOSTIC PROCEDURE SURGERY RELATED REVIEW OF SYSTEMS CONSTITUTIONAL: ANY RECENT FEVER NO . CHILLS NO . WEIGHT CHANGE OF UNKNOWN REASONS NO . GASTROENTEROLOGY: NEW UNEXPLAINABLE CHANGES IN BOWEL CONTROL NO . CONSTIPATION NO . GENITOURINARY: ANY NEW CHANGE IN BLADDER CONTROL? NO . NEUROLOGY: NEW ONSET DIZZINESS OR NEUROLOGICAL CHANGES NOT MENTIONED NO . NEW NUMBNESS OR PAIN PATTERNS NOT MENTIONED AND PERTINENT TO TODAY'S VISIT NO . CARDIOLOGY: NEW CHEST PRESSURE NO . NEW CHEST PAIN NO . RESPIRATORY: UNEXPLAINABLE COUGH NO . NEW SHORTNESS OF BREATH NO . VITAL SIGNS WT 258.6 LBS, HT 70 IN, BMI 37.10 INDEX, BP 156/93 MM HG, HR 102 /MIN, RR 18 /MIN, TEMP 95.6 F, OXYGEN SAT % 98%, SAFE IN ENV? (Y/N) Y, NA INITIALS AW 1128, REVIEWED BY: EM. EXAMINATION GENERAL EXAMINATION: GENERALNO ACUTE DISTRESS, WELL NOURISHED AND HYDRATED. PSYCHAPPROPRIATE MOOD AND AFFECT . LUNGS:CLEAR TO AUSCULTATION BILATERALLY, NO WHEEZES, RHONCHI, RALES. HEART:NO MURMURS, REGULAR RATE AND RHYTHM. ASSESSMENTS MYALGIA - M79.10 (PRIMARY) TREATMENT MYALGIA REFILL PERCOCET TABLET, 5-325 MG, 1 TABLET NEEDED, ORALLY, TWICE DAILY NEEDED FOR PAIN, 30 DAYS, 60 START LYRICA CAPSULE, 75 MG, 1 CAPSULE, ORALLY, TWICE DIALY, 30 DAYS, 60 NOTES: 34-YEAR-OLD MALE IN FOR CHRONIC PAIN FOLLOW-UP. GIVEN PRESENTING SYMPTOMS RECOMMEND CONTINUATION OF CURRENT MEDICATION REGIMEN WITH FOLLOW-UP IN 2 MONTHS. DISCUSSED MEDICAL MARIJUANA WITH PATIENT AND HE ADMITS THAT AT THIS TIME IS NOT A FEASIBLE OPTION PATIENT IS UNEMPLOYED AND IT IS EXPENSIVE. , ISTOP REGISTRY REVIEWED AND DEMONSTRATES COMPLLIANCE. (REF # [id number] ) . OTHERS REFILL PERCOCET TABLET, 5-325 MG, 1 TABLET NEEDED, ORALLY, TWICE DAILY NEEDED FOR PAIN, 30 DAYS, 60 REFILL LYRICA CAPSULE, 75 MG, 1 CAPSULE, ORALLY, TWICE DIALY, 30 DAYS, 60 PROCEDURE CODES FA211 ESTABILISHED PATIENT [facility] CHARGE DISPOSITION & COMMUNICATION FOLLOW UP 2 MONTHS (REASON: MYALGIA) ELECTRONICALLY SIGNED BY WILD LARIOS ON 07/29/2020 AT 09:56 AM EST DISCLAIMER : THIS IS A VISIT SUMMARY EXTRACTED FROM THE [employer] CHART. IT IS NOT A COPY OF THE [employer] PROGRESS NOTE. DALILA
== END ==
LOC: M PAIN 11:15
PROVIDERS: ATTEND Family Medicine
DX: M79.10 Myalgia, unspecified site (principal); F17.210 Nicotine dependence, cigarettes, uncomplicated; Z79.899 Other long term (current) drug therapy

== ENCOUNTER → 2020-09-25 | Outpatient (CLI) | payer OTHER, MEDICAID ==
--- NOTE | 2020-10-01 04:00 | ECWPNPC ---
PATIENT NAME: ANTHONY ORANTES : 1985 GENDER: MALE VISIT DATE: 09/25/2020 DISCHARGE DATE: 09/25/20 1221 VISIT LOCKED DATE TIME: PHYSICIAN: ORQUIDEA DE LA TORRE RESOURCE: ORQUIDEA DE LA TORRE REASON FOR APPOINTMENT 1. MYALGIA- WANTS TPIS HISTORY OF PRESENT ILLNESS GENERAL: -35-YEAR-OLD MALE IN FOR CHRONIC PAIN FOLLOW-UP. HE RATES HIS PAIN CURRENTLY AT AN 8 OUT OF 10 AND DESCRIBES IT CONTINUOUS, SHARP, PULSING, AND A TEARING FEELING. FALL RISK SCREENING: SCREENING : ONE FALL WITHOUT INJURY IN THE PAST YEAR. PAIN SCREENING: PATIENT HAS A COMPLAINT OF ACUTE OR CHRONIC PAIN :YES LOCATION OF PAIN:RIGHT SHOULDER, LOW BACK, LEG(S) INTENSITY OF PAIN (SCALE OF 1 TO 10):8 WHAT DOES YOUR PAIN FEEL LIKE:CONTINOUS, SHARP PULSING, TEARING DURATION:CONTINOUS, CONSTANT, STEADY, AWAKENS FROM SLEEP PAIN IS INCREASED BY:ACTIVITIES, PROLONGED STANDING LAYING DOWN PAIN IS DECREASED BY:USE OF PAIN MEDICATIONS NURSING NOTE: -. CURRENT MEDICATIONS TAKING PERCOCET 5-325 MG TABLET 1 TABLET NEEDED ORALLY TWICE DAILY NEEDED FOR PAIN TAKING LYRICA 75 MG CAPSULE 1 CAPSULE ORALLY TWICE DIALY NOT-TAKING TIZANIDINE HCL 4 MG TABLET 1 TABLET NEEDED ORALLY THREE TIMES A DAY NOT-TAKING IBUPROFEN 800 MG TABLET 1 TABLET WITH FOOD OR MILK NEEDED ORALLY THREE TIMES A DAY MEDICATION LIST REVIEWED AND RECONCILED WITH THE PATIENT PAST MEDICAL HISTORY HYPERTENSION BACK PAIN, CHRONIC UMBILICAL HERNIA EPIDIDYMITIS CHEST WALL PAIN ALLERGIES N.K.D.A. SURGICAL HISTORY HAND SURGERY, RIGHT HERNIA REPAIR 07/2020 SOCIAL HISTORY GENERAL: TOBACCO USE ARE YOU A:CURRENT SMOKER ARE YOU INTERESTED IN QUITTING?THINKING ABOUT QUITTING COUNSELED THE PATIENT ON SMOKING CESSATION, EDUCATION [id number]/04/2021 VAPORNO E-CIGARETTENO LATEX QUESTIONNAIRE LATEX ALLERGY : HAVE YOU EVER DEVELOPED ANY TYPE OF REACTION AFTER HANDLING LATEX PRODUCTS SUCH RUBBER GLOVES, CONDOMS, DIAPHRAGMS, BALLOONS, SOCKS, OR UNDERWEAR?NO LATEX ALLERGY : HAVE YOU EVER DEVELOPED ANY TYPE OF REACTION DURING OR AFTER DENTAL APPOINTMENT, VAGINAL/RECTAL EXAMINATION, SURGICAL PROCEDURE, OR ANY OTHER EXPOSURE?NO LATEX RISK : HAVE YOU EVER HAD ANY DIFFICULTY BREATHING OR HIVES AFTER EATING OR HANDLING ANY FRUITS, OR VEGETABLES; SUCH KIWI, BANANAS, STONE FRUITS, OR CHESTNUTSNO LATEX RISK : DO YOU HAVE A PREVIOUS PERSONAL HISTORY OF MORE THAN NINE SURGERIES, SPINA BIFIDA, OR REPEATED CATHERIZATIONS? NO DATE ASKED : 09/25/2020 ALCOHOL USE: NO. ALCOHOL SCREENING DID YOU HAVE A DRINK CONTAINING ALCOHOL IN THE PAST YEAR?NO POINTS0 INTERPRETATIONNEGATIVE RECREATIONAL DRUG USE DRUG USE?NO JEWISH [id number] OTHER NO WORSHIP BELIEFS THAT WOULD IMPACT HEALTH CARE. LANGUAGE LANGUAGES SPOKEN:BOTH CHINESE AND TURKMEN LIMITED CHINESE LEARNING BARRIERS / SPECIAL NEEDS CHANGE FROM LAST VISIT?NO BARRIERS TO LEARNING?NO HEARING IMPAIRED?NO VISION IMPAIRED?NO COGNITIVELY IMPAIRED?NO READINESS TO LEARN?YES LEARNING PREFERENCES?YES LEARNING CAPABILITIES PRESENT?YES EMOTIONAL BARRIERS?NO SPECIAL DEVICES?NO LASERIST NEEDED?YES DOMESTIC VIOLENCE DO YOU FEEL SAFE IN YOUR ENVIRONMENT?YES OCCUPATION: UNEMPLOYED. DIET: NO ADDED SALT. MARITAL STATUS: . - HAS THE PATIENT BEEN EDUCATED REGARDING HIS/HER PLAN OF CARE?YES HAS THE PATIENT BEEN EDUCATED REGARDING PAIN, THE RISK FOR PAIN, THE IMPORTANCE OF EFFECTIVE PAIN MANAGEMENT, AND THE PAIN ASSESSMENT PROCESS?YES ADVANCE DIRECTIVE ADVANCE DIRECTIVE DISCUSSED WITH PATIENT:YES PATIENT DENIES, ANY ADVANCED DIRECTIVES, OR ASSISTANCE AT THIS TIME. HOSPITALIZATION/MAJOR DIAGNOSTIC PROCEDURE SURGERY RELATED REVIEW OF SYSTEMS CONSTITUTIONAL: ANY RECENT FEVER NO . CHILLS NO . WEIGHT CHANGE OF UNKNOWN REASONS NO . GASTROENTEROLOGY: NEW UNEXPLAINABLE CHANGES IN BOWEL CONTROL NO . CONSTIPATION NO . GENITOURINARY: ANY NEW CHANGE IN BLADDER CONTROL? NO . NEUROLOGY: NEW ONSET DIZZINESS OR NEUROLOGICAL CHANGES NOT MENTIONED NO . NEW NUMBNESS OR PAIN PATTERNS NOT MENTIONED AND PERTINENT TO TODAY'S VISIT NO . CARDIOLOGY: NEW CHEST PRESSURE NO . PATIENT DENIES NO . RESPIRATORY: UNEXPLAINABLE COUGH NO . NEW SHORTNESS OF BREATH NO . VITAL SIGNS WT 268 LBS, HT 70 IN, BMI 38.45 INDEX, BP 135/87 MM HG, HR 79 /MIN, RR 18 /MIN, TEMP 98.7 F, OXYGEN SAT % 98%, SAFE IN ENV? (Y/N) YES, NA INITIALS PA 11:37, REVIEWED BY: [facility]. EXAMINATION GENERAL EXAMINATION: GENERALNO ACUTE DISTRESS, WELL NOURISHED AND HYDRATED. PSYCHAPPROPRIATE MOOD AND AFFECT . LUNGS:CLEAR TO AUSCULTATION BILATERALLY, NO WHEEZES, RHONCHI, RALES. HEART:NO MURMURS, REGULAR RATE AND RHYTHM. ASSESSMENTS MYALGIA - M79.10 (PRIMARY) TREATMENT MYALGIA NOTES: 35-YEAR-OLD MALE IN FOR CHRONIC PAIN FOLLOW-UP. PATIENT HAD TRIGGER POINT INJECTIONS SCHEDULED BEFORE THAT HAD TO BE CANCELED AND WAS ENCOURAGED TO RESCHEDULE SAID PROCEDURE. GIVEN PRESENTING SYMPTOMS WE'LL FOLLOW-UP AFTER TRIGGER POINT INJECTIONS. PATIENT HAS EXPRESSED UNDERSTANDING OF AND WAS IN AGREEMENT WITH TREATMENT PLAN. GIVEN TIME TO ASK QUESTIONS AND EXPRESS CONCERNS. , ISTOP REGISTRY REVIEWED AND DEMONSTRATES COMPLLIANCE. (REF # [id number] ) BRINGS IN MEDICATIONS WHICH IS APPROPRIATE FOR WHAT WAS DISPENSED. RECENT URINE TOXICOLOGY REVIEWED. NO UNAUTHORIZED MEDICATIONS. NO ILLICIT SUBSTANCES AND PRESCRIBED MEDICATIONS WERE PRESENT. PROCEDURE CODES FA211 ESTABILISHED PATIENT [facility] CHARGE DISPOSITION & COMMUNICATION FOLLOW UP POST PROCEDURE (REASON: TRIGGER POINT INJECTIONS) ELECTRONICALLY SIGNED BY WILD LARIOS ON 09/30/2020 AT 10:28 AM EST DISCLAIMER : THIS IS A VISIT SUMMARY EXTRACTED FROM THE [employer] CHART. IT IS NOT A COPY OF THE [employer] PROGRESS NOTE. DALILA
== END ==
LOC: M PAIN 11:30
PROVIDERS: ATTEND Family Medicine
DX: M79.10 Myalgia, unspecified site (principal); F17.210 Nicotine dependence, cigarettes, uncomplicated; Z79.899 Other long term (current) drug therapy

== ENCOUNTER → 2020-11-01 | Outpatient (CLI) | payer OTHER, MEDICAID | LOC: M LABSMTC 11:40 | PROVIDERS: ATTEND Anesthesiology | DX: Z20.822 Contact with and (suspected) exposure to COVID-19 (principal) ==

== ENCOUNTER → 2021-02-13 | Outpatient (CLI) | payer OTHER, MEDICAID ==
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
== END ==
LOC: M PAIN 09:15
PROVIDERS: ATTEND Family Medicine
DX: G89.29 Other chronic pain (principal); M79.10 Myalgia, unspecified site; I10 Essential (primary) hypertension; Z79.899 Other long term (current) drug therapy; Z79.891 Long term (current) use of opiate analgesic; F17.210 Nicotine dependence, cigarettes, uncomplicated

== ENCOUNTER → 2021-02-20 | Outpatient (CLI) | payer OTHER, MEDICAID | LOC: M PAIN 14:45 | PROVIDERS: ATTEND Anesthesiology | DX: M54.5 Low back pain (principal); M51.16 Intervertebral disc disorders with radiculopathy, lumbar region; M54.2 Cervicalgia; G89.29 Other chronic pain; F17.210 Nicotine dependence, cigarettes, uncomplicated; Z79.899 Other long term (current) drug therapy ==